=== PATIENT | female | born 1950 | race Caucasian/White ===

== ENCOUNTER → 2017-08-08 | Outpatient (CLI) | payer MEDICARE ==
[~2017-08-08] MED LIST: ASPI81TA27 PO; HYDR12.56 PO; IBUP800T24 PO
[2017-08-08 11:07] LABS: Cholesterol 147 mg/dL (< 200); HDL Cholesterol 51 mg/dL (40-59); LDL Cholesterol 91 mg/dL (< 100); Triglycerides 72 mg/dL (< 150)
== END | disposition home or self-care (01) ==
LOC: LAB 10:15
PROVIDERS: ATTEND Obstetrics & Gynecology
DX: Z00.00 Encounter for general adult medical examination without abnormal findings (principal); R94.6 Abnormal results of thyroid function studies
CPT/HCPCS: 36415; 80061; 84443

== ENCOUNTER 2017-08-18 07:21 | Day surgery (SDC) | payer MEDICARE ==
[2017-08-12 13:12] LABS: Basophils # (auto) 0.1 uL; Basophils % (auto) 0.7 % (0.0-2.0); Eosinophils # (auto) 0.1 uL; Eosinophils % (auto) 1.6 % (0.0-7.0); Hematocrit 42.1 % (36.0-46.0); Hemoglobin 14.2 g/dL (12.2-16.2); Lymphocytes # (auto) 1.6 uL; Lymphocytes % (auto) 20.5 % (10.0-50.0); Mean Corpuscular Hemoglobin 28.8 pg (28.0-32.0); Mean Corpuscular Hgb Conc. 33.7 g/dL (32.0-36.0); Mean Corpuscular Volume 85.6 fL (80.0-100.0); Mean Platelet Volume 9.3 fL (6.9-10.8); Monocytes # (auto) 0.5 uL; Neutrophils # (auto) 5.5 uL; Neutrophils % (auto) 71.2 % (37.0-80.0); Platelet Count (auto) 248 10^3/uL (140-450); Red Cell Distribution Width 14.8 % (11.8-14.3); White Blood Cell 7.7 10^3/uL (4.4-10.8)
[2017-08-12 13:15] LABS: Urine Blood TRACE /uL (Negative); Urine Color Yellow (Yellow); Urine Glucose Normal (Normal); Urine Ketone Negative (Negative); Urine Nitrite Negative (Negative)
[2017-08-12 13:26] LABS: INR 0.95 (0.9-1.15); Prothrombin Time 10.3 sec (9.37-12.3)
[2017-08-12 13:38] LABS: Albumin 3.4 g/dL (3.4-5.0); BUN/Creatinine Ratio 27.7; Bilirubin, Total 0.6 mg/dL (0.2-1.0); Calcium 10.2 mg/dL (8.5-10.1); Total Protein 7.7 g/dL (6.4-8.2)
[2017-08-12 14:31] LABS: Urine Bilirubin Negative (Negative)
[~2017-08-18] VITALS: Ht 167.6 cm; Wt 113.4 kg
[2017-08-18] MEDS ORDERED: fentaNYL CITRATE 100 MCG/2 ML VL ONE (08:02)
[2017-08-18] MEDS ORDERED: MIDAZOLAM HCL 1MG/1ML-2 ML VIAL ONE (08:03)
[2017-08-18] MEDS ORDERED: SODIUM CHLORIDE LOCK 10 ML ONE (08:03)
[2017-08-18] MEDS ORDERED: PROPOFOL 10 MG/ML 20 ML IV ONE (08:03)
[2017-08-18] MEDS ORDERED: METOCLOPRAMIDE HCL 5MG/ml INJ 2ml VIAL IV ONE (09:30)
[2017-08-18 09:52] VITALS: BP 127/67
[2017-08-18] MEDS ORDERED: fentaNYL CITRATE 100 MCG/2 ML VL IV ONE (10:00)
== END 2017-08-18 09:58 | disposition home or self-care (01) ==
LOC: GI 07:21
PROVIDERS: ATTEND Internal Medicine Gastroenterology
DX: K63.5 Polyp of colon (principal); K62.1 Rectal polyp; K57.30 Diverticulosis of large intestine without perforation or abscess without bleeding; K64.8 Other hemorrhoids; E66.9 Obesity, unspecified; Z68.41 Body mass index [BMI] 40.0-44.9, adult; Z90.710 Acquired absence of both cervix and uterus; Z88.5 Allergy status to narcotic agent
CPT/HCPCS: 36415; 45380; 45385; 80053; 81003; 85025; 85610; J2250; J2704; J3010; 99152; 99153

== ENCOUNTER 2017-10-06 00:19 | Emergency (ER) | payer MEDICARE ==
[~2017-10-06] VITALS: Ht 167.6 cm; Wt 113.4 kg
[2017-10-06 01:03] LABS: Basophils # (auto) 0.1 uL; Eosinophils # (auto) 0.1 uL; Eosinophils % (auto) 1.6 % (0.0-7.0); Hemoglobin 13.2 g/dL (12.2-16.2); Lymphocytes # (auto) 1.4 uL; Lymphocytes % (auto) 17.1 % (10.0-50.0); Mean Corpuscular Hemoglobin 28.4 pg (28.0-32.0); Mean Corpuscular Hgb Conc. 33.1 g/dL (32.0-36.0); Monocytes # (auto) 0.7 uL; Monocytes % (auto) 8.5 % (0.0-12.0); Neutrophils # (auto) 5.8 uL; Neutrophils % (auto) 71.8 % (37.0-80.0); Nucleated Red Blood Cells % 0.1 %; Platelet Count (auto) 250 10^3/uL (140-450); Red Blood Cells 4.66 10^6/uL (4.0-5.20); Red Cell Distribution Width 14.6 % (11.8-14.3); White Blood Cell 8.1 10^3/uL (4.4-10.8)
[2017-10-06 01:19] LABS: Albumin 3.2 g/dL (3.4-5.0); BUN/Creatinine Ratio 24.4; Calcium 9.9 mg/dL (8.5-10.1); Potassium 3.3 mmol/L (3.5-5.1)
[2017-10-06 01:22] LABS: Bilirubin, Total 0.7 mg/dL (0.2-1.0); Total Protein 7.4 g/dL (6.4-8.2)
[2017-10-06 06:02] VITALS: BP 125/66
[2017-10-06 06:14] LABS: Urine Bacteria None Seen /hpf (None Seen); Urine WBC None Seen /hpf (0 - 5)
[2017-10-06 06:36] LABS: Urine Specific Gravity 1.006 (1.001-1.035)
[2017-10-06 06:37] LABS: Urine Blood Normal /uL (Negative)
== END 2017-10-06 07:21 | disposition home or self-care (01) ==
LOC: ER 00:21
DX: R10.9 Unspecified abdominal pain (principal); R11.2 Nausea with vomiting, unspecified; I10 Essential (primary) hypertension; Z79.82 Long term (current) use of aspirin; Z88.6 Allergy status to analgesic agent
CPT/HCPCS: 36415; 74176; 80053; 81001; 82150; 83690; 85025; 93005

== ENCOUNTER 2018-02-25 16:03 | Observation (INO) | payer MEDICARE ==
[~2018-02-25] VITALS: Ht 167.6 cm; Wt 113.4 kg
[2018-02-25] MEDS ORDERED: KETOROLAC TROMETH 30 MG/ML 1ML VIAL IV ONE (17:15)
[2018-02-25 17:34] LABS: Basophils # (auto) 0.1 uL; Basophils % (auto) 0.8 % (0.0-2.0); Eosinophils # (auto) 0.1 uL; Eosinophils % (auto) 1.7 % (0.0-7.0); Hematocrit 43.2 % (36.0-46.0); Hemoglobin 14.4 g/dL (12.2-16.2); Lymphocytes # (auto) 1.8 uL; Lymphocytes % (auto) 20.8 % (10.0-50.0); Mean Corpuscular Hemoglobin 28.3 pg (28.0-32.0); Mean Corpuscular Hgb Conc. 33.3 g/dL (32.0-36.0); Mean Corpuscular Volume 85.1 fL (80.0-100.0); Monocytes # (auto) 0.5 uL; Monocytes % (auto) 5.9 % (0.0-12.0); Neutrophils % (auto) 70.8 % (37.0-80.0); Platelet Count (auto) 268 10^3/uL (140-450); Red Blood Cells 5.08 10^6/uL (4.0-5.20); White Blood Cell 8.5 10^3/uL (4.4-10.8)
[2018-02-25] MEDS ORDERED: CYCLOBENZAPRINE HCL 10 MG TAB PO ONE (17:45)
[2018-02-25 17:54] LABS: Albumin 3.4 g/dL (3.4-5.0); BUN/Creatinine Ratio 16.3; Bilirubin, Total 0.3 mg/dL (0.2-1.0); Magnesium 2.2 mg/dL (1.6-2.6); Potassium 3.2 mmol/L (3.5-5.1); Total Protein 7.9 g/dL (6.4-8.2)
[2018-02-25 20:36] LABS: Urine Bacteria FEW /hpf (None Seen); Urine Blood Negative /uL (Negative); Urine Mucus FEW (None Seen); Urine Specific Gravity 1.018 (1.001-1.035); Urine WBC 1 /hpf (0 - 5)
[2018-02-25 21:30] VITALS: BP 145/89
[2018-02-25] MEDS ORDERED: POTASSIUM CHL 20 Meq TABLET PO ONE (21:30)
== END 2018-02-25 21:54 | disposition home or self-care (01) | DRG 563 ==
LOC: ER 16:03 → OVERFLOW 16:04 → ER 21:54
PROVIDERS: ADMIT Family Medicine; ATTEND Family Medicine
DX: S39.012A Strain of muscle, fascia and tendon of lower back, initial encounter (principal); E87.6 Hypokalemia; I10 Essential (primary) hypertension; M47.816 Spondylosis without myelopathy or radiculopathy, lumbar region; M51.36 Other intervertebral disc degeneration, lumbar region; X58.XXXA Exposure to other specified factors, initial encounter; Y93.89 Activity, other specified; Y92.89 Other specified places as the place of occurrence of the external cause; Y99.8 Other external cause status; Z90.710 Acquired absence of both cervix and uterus
CPT/HCPCS: 36415; 71045; 72100; 74176; 80053; 81001; 82150; 83690; 83735; 85025; 93005; 96372; 99285; G0378; J1885

== ENCOUNTER → 2019-06-01 | Outpatient (CLI) | payer MEDICARE ==
[~2019-06-01] MED LIST changes: -ASPI81TA27 PO; +DICL50TA4 PO; +HCTZ25T PO; -HYDR12.56 PO; -IBUP800T24 PO; +LANS30CA57 PO
== END | disposition home or self-care (01) ==
LOC: LAB 12:18
PROVIDERS: ATTEND Internal Medicine
DX: E66.01 Morbid (severe) obesity due to excess calories (principal); I10 Essential (primary) hypertension; M10.9 Gout, unspecified; Z79.899 Other long term (current) drug therapy
CPT/HCPCS: 36415; 83036; 84443; 84550

== ENCOUNTER 2025-01-26 20:44 | Emergency (ER) | payer MEDICARE, OTHER ==
[~2025-01-26] VITALS: Ht 167.6 cm; Wt 113.6 kg
[~2025-01-26 20:44] MED LIST changes: -HCTZ25T PO; +HYDR25TA5 PO
--- NOTE | 2025-01-26 21:03 | ED.PDOC ---
HPI Comments 74 year old female presents to the ED via EMS with a chief complaint of chest pain onset today (01/26/25). Per EMS, patient went to urgent care today for calcium infusion and a few hours after began experiencing chest pain with palpations. Upon EMS arrival patient was hypertensive, EKG showed a-fib, RVR, HR 190-200. Patient states she has been receiving calcium infusions, usually last 1 hour, today was 4 hours. PMHx HTN. Denies headache, nausea, vomiting, diarrhea, shortness of breath, fevers, chills. No other symptoms or modifying factors present at this time. Chief Complaint: Palpitations Time Seen by MD: 20:42 Reviewed Notes: Medications, Allergies Allergies: Coded Allergies: Codeine (Verified Allergy, Unknown, 08/12/17) Home Meds Reported Medications Lansoprazole (Lansoprazole) 30 Mg Cap, 15 MG PO DAILY, CAP 04/13/18 Hctz (Hydrochlorothiazide) 25 Mg Tab, 25 MG PO DAILY, TAB 04/13/18 Diclofenac Sodium (Diclofenac Sodium Ec) 50 Mg Tab, 75 MG PO BID, TAB 04/13/18 Information Source: Patient, Emergency Med Personnel Mode of Arrival: EMS Severity: Moderate Timing: Hours Duration: Since onset Prehospital treatment: None Location: Chest (L) Quality: Sharp Onset: At Rest Cardiac Risk Factors: HTN PE Risk Factors: None History of: None Modifying Factors: Nothing Associated Signs and Symptoms: Palpitations Vital Signs Vital Signs Date Time Temp Pulse Resp B/P (MAP) Pulse Ox O2 Delivery O2 Flow Rate FiO2 01/26/25 21:38 129 01/26/25 20:55 98.0 24 173/124 (140) 98 98.0 Physical Exam General: Awake, alert and oriented. No acute distress. Skin: Skin in warm, dry and intact without rashes or lesions. HEENT: The head is normocephalic and atraumatic. Conjunctivae are clear without exudates or hemorrhage. Sclera is non-icteric. Neck: Normal range of motion. No JVD. Cardiac: Rapid rate, irregular rhythm Respiratory: No signs of respiratory distress. No Stridor. Extremities: Upper and lower extremities are atraumatic in appearance without deformity. Neurological: The patient is awake, alert and oriented to person, place, and time with normal speech. Speech is clear. There is no facial asymmetry. Psychiatric: Appropriate mood and affect. Good judgement and insight. Review of Systems: REVIEW OF SYSTEMS: No fever, no chills, or fatigue HEENT: No sore throat, no earache, no congestion, no neck pain. Cardiac: Positive chest pain. Positive palpitations. Lungs: No shortness of breath, no cough. GI: No nausea, no vomiting, no diarrhea, no constipation, no abdominal pain : No dysuria, frequency, or urgency. No hematuria. Musculoskeletal: No joint pain , no joint swelling, no extremity edema. Skin: No rash, no itching. Neuro: No headache, no dizziness, no weakness, positive tremors Past Medical History PAST MEDICAL HISTORY: HTN Surgical History: Hysterectomy WOOL WASHER History: No Pertinent WOOL WASHER History Family History Family History: Unknown Social History Smoker: Non-Smoker Alcohol: Occasionally Drugs: Denies Drug Use Lives In: Home EKG EKG : Pulse Rate (adult): 163 Cardiac Rhythm: Afib Comments No STEMI Was a procedure done? Was a procedure done?: No CP Differential Dx Differential Diagnosis: Other Other Differential Diagnosis Differential diagnoses considered include acute ischemic coronary syndrome, aortic dissection, cardiac tamponade, mediastinitis, pulmonary embolus, pneumothorax, cardiac arrhythmia, tension pneumothorax, esophageal rupture, coronary artery vasospasm, myocarditis, pericarditis, pneumonia, pulmonary edema, esophageal tear, pancreatitis, aortic stenosis, dilated cardiomyopathy, hypertrophic cardiomyopathy, mitral valve prolapse, malignancy, pleuritis, pneumomediastinum, primary pulmonary hypertension, cholecystitis, esophageal spasm, esophagus, gastritis, GERD, peptic ulcer disease, costochondritis, fibromyalgia, rib fracture, herpes zoster, radicular syndromes, thoracic outlet syndrome, somatization. X-Ray, Labs, Meds, VS Vital Signs Date Time Temp Pulse Resp B/P (MAP) Pulse Ox O2 Delivery O2 Flow Rate FiO2 01/26/25 21:38 129 01/26/25 21:02 163 01/26/25 20:55 98.0 208 24 173/124 (140) 98 98.0 01/26/25 20:47 163 Lab Test 01/26/25 22:01 01/26/25 21:17 Range/Units Troponin I High Sensitivity 6 6 </=34 ng/L White Blood Count 9.4 4.4-10.8 10^3/uL Red Blood Count 5.06 4.0-5.20 10^6/uL Hemoglobin 14.7 12.2-16.2 g/dL Hematocrit 43.3 36.0-46.0 % Mean Corpuscular Volume 85.6 80.0-100.0 fL Mean Corpuscular Hemoglobin 29.0 28.0-32.0 pg Mean Corpuscular Hemoglobin Concent 33.9 32.0-36.0 g/dL Red Cell Distribution Width 14.9 H 11.8-14.3 % Platelet Count 252 140-450 10^3/uL Mean Platelet Volume 8.4 6.9-10.8 fL Neutrophils (%) (Auto) 69.3 37.0-80.0 % Lymphocytes (%) (Auto) 20.4 10.0-50.0 % Monocytes (%) (Auto) 7.0 0.0-12.0 % Eosinophils (%) (Auto) 2.4 0.0-7.0 % Basophils (%) (Auto) 0.9 0.0-2.0 % Neutrophils # (Auto) 6.5 1.6-8.6 10 ^3/uL Lymphocytes # (Auto) 1.9 0.4-5.4 10 ^3/uL Monocytes # (Auto) 0.7 0-1.3 10 ^3/uL Eosinophils # (Auto) 0.2 0-0.8 10 ^3/uL Basophils # (Auto) 0.1 0-0.2 10 ^3/uL Nucleated Red Blood Cells 0.1 % Sodium Level 146 H 136-145 mmol/L Potassium Level 3.3 L 3.5-5.1 mmol/L Chloride Level 108 H 98-107 mmol/L Carbon Dioxide Level 24 20-31 mmol/L Anion Gap 14 5-15 Blood Urea Nitrogen < 5 L 9-23 mg/dL Creatinine 0.76 0.550-1.02 mg/dL Glomerular Filtration Rate Calc 81 >90 mL/min BUN/Creatinine Ratio 6.6 L 10.0-20.0 Serum Glucose 139 H 74-106 mg/dL Calcium Level 8.5 L 8.7-10.4 mg/dL Total Bilirubin 0.5 0.2-1.0 mg/dL Aspartate Amino Transferase (AST) 9 L 13-40 U/L Alanine Aminotransferase (ALT) 9 7-40 U/L Alkaline Phosphatase 98 46-116 U/L B-Type Natriuretic Peptide 47.45 0-100 pg/mL Total Protein 7.2 5.7-8.2 g/dL Albumin 4.3 3.2-4.8 g/dL Thyroid Stimulating Hormone (TSH) 0.31 L 0.55-4.78 uIU/mL Current Medications Medications (Trade) Dose Ordered Sig/Travis Route Start Time Stop Time Status Last Admin Aspirin 324 mg ONCE ONCE PO 01/26/25 21:00 01/26/25 21:01 DC 01/26/25 21:12 Diltiazem HCl (Cardizem Injection) 20 mg ONCE ONCE IV 01/26/25 21:00 01/26/25 21:01 DC 01/26/25 21:11 Diltiazem HCl (Cardizem Injection) 15 mg ONCE ONCE IV 01/26/25 22:00 01/26/25 22:01 DC 01/26/25 22:28 IMPRESSION: 1. No acute cardiopulmonary disease. ESSION: No abnormality demonstrated. Images Reviewed?: Images reviewed and evaluated by me (Independent interpretation of chest x-ray: No acute disease) Time of 1ST Reevaluation: 21:12 Reevaluation 1ST: Unchanged Patient Education/Counseling: Other (Need for admission) Family Education/Counseling: Other (Need for admission) Departure 1 Departure Time of Disposition: 23:25 Impression: Primary Impression: New onset a-fib Disposition: ADMITTED INPATIENT Condition: Serious Comments 74-year-old female who presented to the emergency department with AFib with RVR Heart rate improved with Cardizem bolus x 2 and drip Patient admitted to hospitalist service for further treatment, evaluation and monitoring. Extensive evaluation was performed in attempt to identify or rule out: (See differential diagnosis section) The following tests were ordered, and results were reviewed by me and discussed with patient: (See diagnostic results section) The following test were independently interpreted by me: EKG, chest x-ray I reviewed and agreed with the following test results read by other providers: Chest x-ray I reviewed the following notes from the pt's past medical encounters: Encounter March 2018 for gallstones Additional information was gathered from interviewing the following independent historians: EMS personnel Discussion of management or test interpretation with external physician/other qualified health pet care attendant: N/A Addressed an acute or chronic illness that poses a threat to life or bodily function: AFib with RVR Decision regarding hospitalization or escalation of hospital level of care: Risk and benefits of admission for further treatment of patient's condition was considered. Due to patient's current clinical condition, high risk of decline and poor outcome if discharged and need for further inpatient management and monitoring, patient will be admitted to the hospital. Drug therapy requiring intensive monitoring for toxicity: IV diltiazem Parenteral controlled substances: N/A Decision regarding elective major surgery with identified patient or procedure risk factors: N/A Decision regarding emergency major surgery: N/A Decision not to resuscitate or to de-escalate care because of poor prognosis: N/A Diagnosis or treatment significantly limited by social determinants of health: N/A Critical Care Note Critical Care Time?: Yes (35 min-critical care time only) Critical care comment: Due to a high probability of clinically significant, life threatening deterioration, the patient required my highest level of preparedness to intervene emergently and I personally spent this critical care time directly and personally managing the patient. This critical care time included obtaining a history; examining the patient; pulse oximetry; ordering and review of studies; arranging urgent treatment with development of a management plan; evaluation of patient's response to treatment; frequent reassessment; and, discussions with other providers. This critical care time was performed to assess and manage the high probability of imminent, life-threatening deterioration that could result in multi-organ failure. It was exclusive of separately billable procedures and treating other patients and teaching time. Please see my other sections and the rest of the note for further information on patient assessment and treatment. Stability Stability form required: No Heart Score Heart Score: Heart Score Response (Comments) Value History Highly Suspicious 2 EKG Normal 0 Age >65 2 Risk Factors 1 or 2 risk factors 1 Troponin Normal limit 0 Total 5 I personally scribed for URVASHI CHONG MD ([email or web address]) on 01/26/25 at 21:02. Electronically submitted by Cami March ([email or web address]). I personally scribed for URVASHI CHONG MD ([email or web address]) on 01/26/25 at 22:07. Electronically submitted by Cami March ([email or web address]). URVASHI CHONG MD January 26, 2025 21:02
[2025-01-26] MEDS: dilTIAZem 25 MG/5 ML VIAL IV ONE ×2 (21:11→22:28)
[2025-01-26] MEDS: ASPirin 81 mg TAB PO ONE (21:12)
--- NOTE | 2025-01-26 21:23 | DVH ---
CHEST RADIOGRAPH Indication: cp Technique: Single frontal view of the chest was obtained COMPARISON: None FINDINGS: Lines and Tubes: None Lungs: Clear Pleura: No effusion. No pneumothorax. Cardiomediastinal contours: Unremarkable IMPRESSION: No abnormality demonstrated.
[2025-01-26 21:26] LABS: Basophils # (auto) 0.1 10 ^3/uL (0-0.2); Basophils % (auto) 0.9 % (0.0-2.0); Eosinophils # (auto) 0.2 10 ^3/uL (0-0.8); Eosinophils % (auto) 2.4 % (0.0-7.0); Hematocrit 43.3 % (36.0-46.0); Hemoglobin 14.7 g/dL (12.2-16.2); Lymphocytes # (auto) 1.9 10 ^3/uL (0.4-5.4); Lymphocytes % (auto) 20.4 % (10.0-50.0); Mean Corpuscular Hgb Conc. 33.9 g/dL (32.0-36.0); Mean Corpuscular Volume 85.6 fL (80.0-100.0); Monocytes # (auto) 0.7 10 ^3/uL (0-1.3); Neutrophils # (auto) 6.5 10 ^3/uL (1.6-8.6); Neutrophils % (auto) 69.3 % (37.0-80.0); Nucleated Red Blood Cells % 0.1 %; Platelet Count (auto) 252 10^3/uL (140-450); Red Blood Cells 5.06 10^6/uL (4.0-5.20); Red Cell Distribution Width 14.9 % (11.8-14.3); White Blood Cell 9.4 10^3/uL (4.4-10.8)
[2025-01-26 21:47] LABS: Albumin 4.3 g/dL (3.2-4.8); Alkaline Phosphatase 98 U/L (46-116); Anion Gap 14 (5-15); Bilirubin, Total 0.5 mg/dL (0.2-1.0); Carbon Dioxide 24 mmol/L (20-31); Total Protein 7.2 g/dL (5.7-8.2)
[2025-01-26 21:49] LABS: Alanine Aminotransferase 9 U/L (7-40); Aspartate Aminotransferase 9 U/L (13-40); BUN/Creatinine Ratio 6.6 (10.0-20.0); Blood Urea Nitrogen < 5 mg/dL (9-23); Calcium 8.5 mg/dL (8.7-10.4); Chloride 108 mmol/L (98-107); Glucose 139 mg/dL (74-106); Potassium 3.3 mmol/L (3.5-5.1); Sodium 146 mmol/L (136-145)
[2025-01-26 22:00] VITALS: PULSE 134; RESP 15; O2SAT 95
--- NOTE | 2025-01-26 22:00 | DVH ---
CHEST RADIOGRAPH Indication: CP Technique: Single frontal view of the chest was obtained Comparison: XY CHEST XRAY 1 VIEW on DOS: 01/26/25 FINDINGS: Lines and Tubes: None Lungs: No focal consolidation. Pleura: No effusion. No pneumothorax. Cardiomediastinal contours: Unremarkable Bones: No acute osseous abnormality. IMPRESSION: 1. No acute cardiopulmonary disease.
[2025-01-26] MEDS: SODIUM CHL 0.9% 100 ML IV ONE (23:45)
[2025-01-26] MEDS: dilTIAZem 125mg/125ml BAG KIT 125 ML IV ONE (23:49)
[2025-01-27 00:30] LABS: Free T3 2.69 pg/mL (2.3-4.2); Free T4 (Free Thyroxine) 1.8 ng/dL (0.89-1.76)
[2025-01-27 00:39] LABS: INR 1.51 (0.9-1.15); Prothrombin Time 15.4 sec (9.3-11.8)
[2025-01-27] MEDS: POTASSIUM CHL 20MEQ/50ML 50 ML IV ONE (00:47)
[2025-01-27] MEDS: SODIUM CHLORIDE 0.9% 1,000 ML IV ONE (00:49)
[2025-01-27] MEDS: AMIODARONE BOLUS KIT 100 ML IV ONE (02:38)
[2025-01-27] MEDS: AMIODARONE 360mg/200mL PREMIX 200 ML IV ONE (03:06)
[2025-01-27] MEDS ORDERED: LEVO137T3 PO (04:55)
[2025-01-27 05:16] LABS: Basophils # (auto) 0 10 ^3/uL (0-0.2); Basophils % (auto) 0.6 % (0.0-2.0); Eosinophils # (auto) 0.2 10 ^3/uL (0-0.8); Eosinophils % (auto) 2.3 % (0.0-7.0); Hematocrit 40.1 % (36.0-46.0); Hemoglobin 13.2 g/dL (12.2-16.2); Lymphocytes # (auto) 1.3 10 ^3/uL (0.4-5.4); Lymphocytes % (auto) 17.6 % (10.0-50.0); Mean Corpuscular Hemoglobin 28.4 pg (28.0-32.0); Mean Corpuscular Volume 86.1 fL (80.0-100.0); Monocytes # (auto) 0.7 10 ^3/uL (0-1.3); Monocytes % (auto) 8.9 % (0.0-12.0); Neutrophils # (auto) 5.4 10 ^3/uL (1.6-8.6); Neutrophils % (auto) 70.6 % (37.0-80.0); Platelet Count (auto) 231 10^3/uL (140-450); Red Blood Cells 4.66 10^6/uL (4.0-5.20); Red Cell Distribution Width 15.1 % (11.8-14.3); White Blood Cell 7.7 10^3/uL (4.4-10.8)
--- NOTE | 2025-01-27 06:40 | ECG ---
[facility] Test Date: 2025-01-26 Test Time: 20:47:05 Pat Name: WISAM PALACIO Department: ED Room: Gender: F Biodiesel Product Manager: NICKI : 1950 Requested By: URVASHI CHONG Order Number: [id number] Reading MD: Zachariah Addison Measurements Intervals [place] Rate: 163 P: 0 IN: 0 QRS: 63 QRSD: 90 T: 16 QT: 268 QTc: 442 Interpretive Statements Atrial fibrillation with rapid V-rate ST depression, probably rate related Artifact in lead(s) I,II,aVR,aVL,aVF,V1 Electronically Signed On 01-27-2025 21:10:43 PDT by Zachariah Addison Please click the below link to view image of tracing.
--- NOTE | 2025-01-27 06:40 | ECG ---
[facility] Test Date: 2025-01-26 Test Time: 21:38:08 Pat Name: WISAM PALACIO Department: ED Room: Gender: F Sock Folder: NICKI : 1950 Requested By: URVASHI CHONG Order Number: [id number] Reading MD: Zachariah Addison Measurements Intervals [place] Rate: 129 P: 0 SC: 0 QRS: 60 QRSD: 79 T: 33 QT: 313 QTc: 459 Interpretive Statements Atrial fibrillation Borderline T wave abnormalities Electronically Signed On 01-27-2025 21:10:07 PDT by Zachariah Addison Please click the below link to view image of tracing.
--- NOTE | 2025-01-27 06:41 | ECG ---
[facility] Test Date: 2025-01-26 Test Time: 23:44:03 Pat Name: WISAM PALACIO Department: ED Room: Gender: F Combustion Analyst: NICKI : 1950 Requested By: URVASHI CHONG Order Number: [id number] Reading MD: Zachariah Addison Measurements Intervals [place] Rate: 118 P: 0 [place]: 0 QRS: 57 QRSD: 76 T: 46 QT: 317 QTc: 445 Interpretive Statements Atrial fibrillation Electronically Signed On 01-27-2025 21:09:32 PDT by Zachariah Addison Please click the below link to view image of tracing.
--- NOTE | 2025-01-27 06:42 | ECG ---
[facility] Test Date: 2025-01-27 Test Time: 06:27:00 Pat Name: WISAM PALACIO Department: ED Room: Gender: F Document Control Clerk: NICKI : 1950 Requested By: FREDDIE NICHOLS Order Number: [id number] Reading MD: Zachariah Addison Measurements Intervals [place] Rate: 77 P: 46 SC: 136 QRS: 66 QRSD: 81 T: 61 QT: 402 QTc: 455 Interpretive Statements Sinus rhythm Electronically Signed On 01-27-2025 21:08:58 PDT by Zachariah Addison Please click the below link to view image of tracing.
[2025-01-27] MEDS ORDERED: MET25T PO (07:09)
[2025-01-27] MEDS: RIVAROXABAN 15 MG TAB PO ONE (07:29)
[2025-01-27 07:35] VITALS: BP 150/65; PULSE 76; RESP 18; TEMP 97.7; O2SAT 96
[2025-01-27] MEDS ORDERED: AMIODARONE 360mg/200mL PREMIX 200 ML IV SCH (08:45)
--- NOTE | 2025-01-30 22:49 | DVHINCON2 ---
DATE OF CONSULTATION: 01/26/2025 This is a late note entry for 01/26/2025. CHIEF COMPLAINT: Coming in for chest pain and palpitations. HISTORY OF PRESENT ILLNESS: This is a 74-year-old female with significant past medical history for parathyroid nodule status post surgery 17 days ago with a complete thyroidectomy and partial parathyroidectomy who presents to the Emergency Room with palpitations and chest pain. The patient apparently underwent surgery 16-17 days ago with complete resection of her thyroid, as well as a partial resection of her parathyroid. She then developed complications of left lower extremity DVT and was initiated on Xarelto, which she is currently taking 15 mg twice a day. In the last 5 days, the patient ran into complications of hypocalcemia and was started on oral supplements with calcium and IV infusions of calcium twice a day at the [facility]. Apparently, today prior to presentation, the patient received a prolonged infusion of calcium over 4 hours on top of her supplements, which she took one in the morning and one after her infusion, and then she developed palpitations and chest pain. The patient at presentation here to the Emergency Room was found to be in new-onset atrial fibrillation with heart rates in the 190s to 200s. The patient was then proceeded to receive diltiazem IV x 2 pushes and followed on a drip, which improved her heart rates to the 120s. The patient denies any history of any cardiac problems. She denies any current chest pains during my evaluation, nausea or vomiting. She did have a full cardiac workup to include echocardiogram and stress test about 1-2 months ago prior to her surgery. The patient otherwise denies any recent sicknesses, any fevers or chills, any cough or phlegm, diarrhea or constipation, bloody or tarry stools, urinary frequency, urgency, or burning sensation. PAST MEDICAL HISTORY: Left lower extremity DVT, hypothyroidism. PAST SURGICAL HISTORY: Recent parathyroidectomy and complete thyroidectomy resection 16-17 days ago. History of cholecystectomy. SOCIAL HISTORY: No tobacco, no alcohol. No illicit drugs. The patient denies any use of caffeinated drinks or energy drinks. MEDICATIONS AT HOME: To include Xarelto 15 mg twice a day and levothyroxine 150 mcg p.o. daily in the morning. MEDICATION ALLERGIES: CODEINE. REVIEW OF SYSTEMS: A 10-point review of systems was covered with the patient and was negative with the exception to what was present in history of present illness. PHYSICAL EXAMINATION: VITAL SIGNS: Temperature 97.7, pulse rate of 80, blood pressure of 150/65, respiratory rate of 18 with a pulse ox about 96% on room air. GENERAL: Seems to be alert x 4, not in acute distress, female, laying in bed. HEENT: Normocephalic, atraumatic. Extraocular movements are intact. Pupils were equally round, reactive to light and accommodation. Mucous membranes were moist. CARDIOVASCULAR: S1 and S2 positive. Regular rate and rhythm. No rubs, gallops or murmurs. LUNGS: Seems to be clear to auscultation bilaterally. No wheeze, rhonchi or rales. ABDOMEN: Seems to be soft, nontender, and nondistended. Positive bowel sounds. No guarding or rebound. EXTREMITIES: Lower extremities without lower extremity edema, clubbing or cyanosis. No focal deficits. NEUROLOGIC: Cranial nerves testing 2-12 overall seems to be intact. LABORATORY WORKUP: White count 7.7, H and H of 13.2/40.1, platelet count 231,000, INR of 1.51, sodium 146, potassium 3.3, chloride of 108, carbon dioxide of 24, anion gap of 14, BUN less than 5, creatinine of 0.76, glucose of 139, calcium of 8.5 down to 8.3, AST of 9, ALT of 9, alkaline phosphatase of 98, troponins of 6 and 13, TSH of 0.31 with a free T4 of 1.8 and a free T3 of 2.69. IMAGING: Chest x-ray shows no acute cardiopulmonary disease process. EKG initially shows atrial fibrillation with rapid ventricular response of 163, repeat atrial fibrillation with ventricular rate [address]ations or depressions and final EKG showed sinus rhythm, ventricular rate of 77. DIAGNOSES: * New-onset atrial fibrillation with rapid ventricular response. * Secondary diagnosis is hypocalcemia. * Left lower extremity DVT. * History of recent status post total thyroidectomy and partial parathyroidectomy. PLAN: The patient was kept in the Emergency Room. The patient initially was initiated on diltiazem boluses followed by drip, which improved the patient's heart rate to the 120s. The patient then was transitioned by mi to amiodarone bolus followed by drip. The patient after receiving the initiation of amiodarone 1 mg per hour. The patient converted into sinus rhythm. The patient had multiple troponins drawn, which ruled out any demand ischemia. The patient did have a full cardiac workup with nuclear stress test and echo prior to her recent procedure. The patient's atrial fibrillation seems to be provoked secondary to her fluctuations in her hypocalcemia, to large fluctuations of her calciums from being low and receiving high infusions of calcium with supplements. This was discussed with Dr. Aguilar, who is the [facility] ornamenter hand who believes that the patient's calcium fluctuations likely led to the patient's atrial fibrillation, which the patient has never had before. The patient also has mildly elevated free T4 with suppression of TSH. The patient also was started on levothyroxine medication after her thyroid was removed. This could also be contributing to the patient's atrial fibrillation, but less likely; however, given these findings, the patient's levothyroxine 150 will be adjusted to 137 mcg p.o. in the morning. The patient will additionally be placed on metoprolol tartrate 25 mg half a tablet twice a day. The patient is already currently on anticoagulation with Xarelto twice a day in her 21 days of initiation. The patient has been informed that the current dosing is only for 21 days and after that she should be changed to 20 mg once a day twice a day per cardiology recommendations. The patient additionally is already on anticoagulation with Xarelto currently on twice-a-day dosing on her initiation dosing. The patient has been educated about her Xarelto is only for 21 days until she transitions to 20 mg once a day. Additionally, the patient has been informed to avoid any use of nonsteroidal anti-inflammatory medications such as Advil, ibuprofen, Aleve in combination to these anticoagulants due to the increased risk of bleeding. The patient will be referred to Dr. Aguilar to be seen this Friday, Friday coming up for followup. The patient will be arranged for her followup with the [facility]. The patient will also be given a referral back to [facility] within the next 7-10 days. The patient is to call and schedule that appointment. The patient is to also follow up with her primary care provider within the next 5-7 days. The patient has been educated the requirement to see her harvesting manager due to her hypocalcemia development after her procedure as well as the change in her levothyroxine dosing given that she has a little bit of depressed TSH with an increase in her free T4. The patient has been also informed in case she develops any recurrence of palpitations or chest pain or shortness of breath, chills, dizziness, nausea, vomiting, bloody stools, or any other concerning signs and/or symptoms, to return to the Emergency Room. The patient will be again following up with [facility] for her IV calcium infusions routinely starting tomorrow. Hussein Emmanuel MD LM/JASON TID: [id number] RECEIPT: [id number]
== END 2025-01-27 08:46 | disposition home or self-care (01) ==
LOC: EDBD 20:44 → ER 20:44
DX: I48.91 Unspecified atrial fibrillation (principal); I10 Essential (primary) hypertension; Z90.710 Acquired absence of both cervix and uterus; Z79.899 Other long term (current) drug therapy; Z79.01 Long term (current) use of anticoagulants; E03.9 Hypothyroidism, unspecified; Z90.49 Acquired absence of other specified parts of digestive tract; Z98.890 Other specified postprocedural states; Z86.718 Personal history of other venous thrombosis and embolism; Z88.5 Allergy status to narcotic agent
CPT/HCPCS: 36415; 71045; 80053; 82310; 83880; 84439; 84443; 84481; 84484; 85025; 85610; 93005; 96365; 96366; 96375; 96376; 99291; J0283; J3480